=== PATIENT | male | born 1970 | race Caucasian/White ===

== ENCOUNTER 2016-05-20 18:28 | Emergency (ER) | payer SELFPAY ==
[2016-05-20 21:04] LABS: Basophils % (Auto) 0.4 % (0.0-1.8); Eosinophils % (Auto) 0.8 % (0.0-4.3); Hematocrit 45.6 % (35.5-45.6); Hemoglobin 15.4 gm/dl (11.8-15.2); Mean Corpuscular HGB Conc 34 % (32-34); Mean Corpuscular Hemoglobin 32 pg (28-32); Mean Corpuscular Volume 96 fl (84-94); Platelet Count 219 K/mm3 (140-440); Red Blood Count 4.77 M/mm3 (3.65-5.03); Red Cell Distribution Width 13.7 % (13.2-15.2); White Blood Count 7.3 K/mm3 (4.5-11.0)
[2016-05-20 21:25] LABS: Anion Gap 23 mmol/L; BUN/Creatinine Ratio 8.33; Blood Urea Nitrogen 10 mg/dL (9-20); Calcium 9.2 mg/dL (8.4-10.2); Carbon Dioxide 25 mmol/L (22-30); Chloride 85.9 mmol/L (98-107); Potassium 4.5 mmol/L (3.6-5.0); Sodium 129 mmol/L (137-145)
[2016-05-20 21:30] LABS: Glucose 653 mg/dL (75-100)
--- NOTE | 2016-05-20 21:48 | Emergency Department Report ---
ED General Adult HPI - General Chief complaint: Urogenital-Male Stated complaint: TINGLING FINGERS/CONSTATNT URINATING/BLURRED VISIO Time Seen by Provider: 05/20/16 21:43 Source: patient Mode of arrival: Ambulatory Limitations: No Limitations - History of Present Illness Initial comments: This is a pleasant 46-year-old gentleman who reports approximately 3 month history of tingling in his hands. He also is reported approximately a 11 month history of increased dysuria and frequency. He does endorse drinking a lot of soda pop as well as a lot of candy. He has not seen the doctor in greater than 10 years. He has no known medical problems that he is aware of. He denies headache. He denies chest pain. He does report some occasional blurring of vision as well. -: Gradual Location: upper extremity Severity scale (0 -10): 3 Quality: burning Improves with: none Worsens with: none Treatments Prior to Arrival: none - Related Data Previous Rx's Medication Instructions Recorded Last Taken Type metFORMIN [Glucophage] 500 mg PO BID #120 tablet 05/21/16 Unknown Rx Allergies Allergy/AdvReac Type Severity Reaction Status Date / Time No Known Allergies Allergy Verified 05/20/16 19:30 ED Review of Systems ROS: Stated complaint: TINGLING FINGERS/CONSTATNT URINATING/BLURRED VISIO Other details as noted in HPI Comment: All other systems reviewed and negative Constitutional: denies: chills, fever Eyes: vision change. denies: eye pain, eye discharge ENT: denies: ear pain, throat pain Respiratory: denies: cough, shortness of breath, wheezing Cardiovascular: denies: chest pain, palpitations Endocrine: no symptoms reported, increased urine Gastrointestinal: denies: abdominal pain, nausea, diarrhea Genitourinary: dysuria, frequency. denies: urgency Musculoskeletal: denies: back pain, joint swelling, arthralgia Skin: denies: rash, lesions Neurological: paresthesias. denies: headache, weakness Psychiatric: denies: anxiety, depression Hematological/Lymphatic: denies: easy bleeding, easy bruising ED Past Medical Hx - Past Medical History Previous Medical History?: No - Surgical History Past Surgical History?: Yes Additional Surgical History: ARTHROSCOPIC RIGHT KNEE - Social History Smoking Status: Current Every Day Smoker Substance Use Type: None - Medications Home Medications: Home Medications Medication Instructions Recorded Confirmed Last Taken Type metFORMIN [Glucophage] 500 mg PO BID #120 tablet 05/21/16 Unknown Rx ED Physical Exam - General Limitations: No Limitations General appearance: alert, in no apparent distress - Head Head exam: Present: atraumatic, normocephalic - Eye Eye exam: Present: normal appearance, EOMI. Absent: scleral icterus - ENT ENT exam: Present: normal exam, normal orophraynx, mucous membranes moist - Neck Neck exam: Present: normal inspection, full ROM. Absent: tenderness, lymphadenopathy - Respiratory Respiratory exam: Present: normal lung sounds bilaterally. Absent: respiratory distress, wheezes, rales - Cardiovascular Cardiovascular Exam: Present: regular rate, normal rhythm. Absent: systolic murmur, diastolic murmur, rubs, gallop - GI/Abdominal GI/Abdominal exam: Present: soft, normal bowel sounds. Absent: tenderness, guarding - Rectal Rectal exam: Present: deferred - Extremities Exam Extremities exam: Present: normal inspection. Absent: tenderness, pedal edema, joint swelling, calf tenderness - Back Exam Back exam: Present: normal inspection. Absent: tenderness, CVA tenderness (R), CVA tenderness (L) - Neurological Exam Neurological exam: Present: alert, oriented X3, CN II-XII intact, normal gait, reflexes normal - Psychiatric Psychiatric exam: Present: normal affect, normal mood - Skin Skin exam: Present: warm, dry, intact, normal color. Absent: rash ED Course Vital Signs 05/20/16 05/20/16 05/21/16 19:30 22:00 03:32 Temperature 97.9 F 98 F 98 F Pulse Rate 70 77 78 Respiratory 20 20 18 Rate Blood Pressure 132/92 Blood Pressure 121/73 118/78 [Left] O2 Sat by Pulse 99 100 100 Oximetry - Reevaluation(s) Reevaluation #1: 05/21/16 19:42 Patient was gently hydrated here. I did give insulin 4 for his glycemia. Ultimately the sugars were able to be brought down in a gentle manner. Patient tolerated very well. Patient was given some education regarding diabetes as well. I have written him for a glucometer and lancets as well as metformin for initial medication. I'm suspicious male to require insulin but will initiate therapy with metformin for now. He otherwise comfortable and safe for home. ED Medical Decision Making - Lab Data Result diagrams: 05/20/16 20:49 05/20/16 20:49 Critical care attestation.: If time is entered above; I have spent that time in minutes in the direct care of this critically ill patient, excluding procedure time. ED Disposition Clinical Impression: Hyperglycemia due to type 2 diabetes mellitus Qualifiers: Diabetes mellitus emt intermediate insulin use: without half-way use Qualified Code(s ): E11.65 - Type 2 diabetes mellitus with hyperglycemia Disposition: DISCHARGED TO HOME OR SELFCARE Is pt being admited?: No Does the pt Need Aspirin: No Condition: Stable Instructions: Diabetes Mellitus Type 2 in Adults (ED), Meal Planning with Diabetes Exchanges (DC) Additional Instructions: Follow a diabetic diet. Use the prescription to obtain a glucometer. Use this regularly to check your sugars. Keep a log of your sugars and take it to the doctor's office so they will know how to help you manage your diabetes Prescriptions: metFORMIN [Glucophage] 500 mg PO BID #120 tablet Referrals: [facility] [Provider Group] - 3-5 Days [facility] [Provider Group] - 3-5 Days Time of Disposition: 03:43
[2016-05-20] MEDS ORDERED: NACL 0.9% 1000 ML 1,000 ML IV ONE ×2 (21:50→23:51)
[2016-05-21 00:03] LABS: Bilirubin,Urine NEG (Negative); Blood,Urine NEG (Negative); Ketones,Urine NEG (Negative); Leukocyte Esterase,Urine NEG (Negative); Nitrite,Urine NEG (Negative); Protein,Urine <15 mg/dL mg/dL (Negative); Urobilinogen,Urine < 2.0 mg/dL (<2.0)
[2016-05-21] MEDS ORDERED: NACL 0.9% 1000 ML 1,000 ML IV ONE ×2 (00:57→02:26)
[2016-05-21 03:32] VITALS: BP 118/78
[2016-05-21] MEDS ORDERED: GLUCOPHAGE ONE (03:46)
[2016-05-21] MEDS ORDERED: GLUCOPHAGE PO ONE (03:58)
== END 2016-05-21 04:00 | disposition home or self-care (01) ==
LOC: ED 18:28
DX: E11.65 Type 2 diabetes mellitus with hyperglycemia (principal); F17.200 Nicotine dependence, unspecified, uncomplicated
CPT/HCPCS: 36415; 80048; 81001; 82962; 85025; 96360; 96361; 96372; J1815; J7030

== ENCOUNTER 2020-05-01 14:10 | Emergency (ER) | payer SELFPAY ==
[2020-05-01 14:29] VITALS: BP 136/92
--- NOTE | 2020-05-01 14:44 | Emergency Department Report ---
Chief Complaint: Earache Stated Complaint: LETA EAR PAIN/JAW PAIN Time Seen by Provider: 05/01/20 14:28 - HPI History of Present Illness: Patient is a 42-year-old male presents emergency room with complaints of bilateral ear pressure for a week. He states it is worse on the left than the right. He states he also feels a occasional popping sensation in the left jaw. He denies any fever, headache, cough, shortness of breath, chest pain, nausea, vomiting, diarrhea, hearing changes. He denies any fall or injury or any recent airplane flights. He denies any barotrauma. He denies any sick contacts or recent travel. No past medical history. No allergies medications. Vitals are stable On exam: Non toxic appearing, no acute distress atraumatic, normocephalic, full range of motion of the TMJ, no signs of lockjaw or dislocation normal appearance of the eyes, PERRL, EOMI, no periorbital edema or ecchymosis moist mucus membranes, normal oropharynx, normal TMs and canals bilaterally, no mastoid tenderness palpation, no signs of TM perforation regular heart rate and rhythm, no gallops, no rubs, no murmurs breath sounds are clear bilaterally, no w/r/r, no stridor, no respiratory stress, no accessory muscle use A&O x4, no focal neuro deficit skin is warm, dry, intact No signs of otitis media or externa, no signs of sinusitis, no signs of mastoiditis Symptoms likely related to seasonal change and sinus/ear pressure Advised patient Please take Sudafed and Claritin [id number]. Please use Flonase nasal spray. Increase your water intake. Follow-up with a ear nose and throat doctor. Follow-up with a primary care doctor. Return to emergency room for any new or worsening symptoms. Discuss strict return precautions in detail with patient Patient given the appropriate follow-up Medical screening examination performed and there is no threat to life or limb at this time - Exam Vital Signs: Vital Signs 05/01/20 14:17 Temperature 97.7 F Pulse Rate 68 Respiratory 16 Rate Blood Pressure 136/92 O2 Sat by Pulse 100 Oximetry MSE screening note: Focused history and physical exam performed. Due to findings the following was ordered: ED Disposition for MSE Clinical Impression: Jaw pain Ear pressure Qualifiers: Laterality: bilateral Qualified Code(s): H93.8X3 - Other specified disorders of ear, bilateral Disposition: Z-07 MED SCREENING EXAM-LEFT Is pt being admited?: No Does the pt Need Aspirin: No Condition: Stable Instructions: Earache, Adult Additional Instructions: Please take Sudafed and Claritin [id number]. Please use Flonase nasal spray. Increase your water intake. Follow-up with a ear nose and throat doctor. Follow-up with a primary care doctor. Return to emergency room for any new or worsening symptoms. Referrals: [facility], [facility] [Provider Group] - 3-5 Days [facility] [Provider Group] - 3-5 Days [facility] [Provider Group] - 3-5 Days AYE DICKSON MD [Staff Physician] - 3-5 Days [facility] [Provider Group] - 3-5 Days Time of Disposition: 14:45 Print Language: TAJIK
== END 2020-05-01 15:00 | disposition left against medical advice (07) ==
LOC: ED 14:10
DX: H92.03 Otalgia, bilateral (principal); Z53.21 Procedure and treatment not carried out due to patient leaving prior to being seen by health care provider